=== PATIENT | male | born 1995 | race American Indian/Alaskan Native ===

== ENCOUNTER 2022-07-11 16:36 | Emergency (ER) | payer SELFPAY ==
[2022-07-11] MEDS ORDERED: CYCLOBENZAPRINE 10 MG TAB PO ONE (21:23)
[2022-07-11] MEDS ORDERED: IBUPROFEN 800 MG TAB PO ONE (21:23)
[2022-07-11] MEDS ORDERED: HYDROcodone/ACETAMINOPHEN 5-325 MG TAB PO ONE (21:24)
--- NOTE | 2022-07-11 21:46 | Emergency Department Report ---
ED Upper Extremity Inj HPI - General Chief Complaint: Fall Stated Complaint: SHOULDER PAIN/BACK PAIN Time Seen by Provider: 07/11/22 20:49 Source: patient, family Mode of arrival: Ambulatory Limitations: No Limitations - History of Present Illness Initial Comments: 27-year-old male presenting with pain after fall injury. Patient reports at work he had a slip and fall, landing on his back, complaining of pain in his left shoulder, and his right back area. Describes the pain as sharp, worse with movement, he denies LOC, he denies neck injury, no chest pain, no abdominal pain, no weakness numbness tingling or paresthesias of the extremities. Denies using any blood thinners, he denies any prior history of back injuries. -: Gradual, days(s) - Related Data Previous Rx's Medication Instructions Recorded Last Taken Type Cyclobenzaprine [Flexeril 10 MG 10 mg PO TID PRN #20 tablet 07/11/22 Unknown Rx TAB] Ibuprofen [Motrin 800 MG tab] 800 mg PO TID PRN #30 tablet 07/11/22 Unknown Rx Allergies Allergy/AdvReac Type Severity Reaction Status Date / Time No Known Allergies Allergy Verified 07/11/22 22:13 ED Review of Systems ROS: Stated complaint: SHOULDER PAIN/BACK PAIN Other details as noted in HPI Constitutional: see HPI ENT: as per HPI Respiratory: denies: cough Cardiovascular: denies: chest pain Endocrine: see HPI Gastrointestinal: denies: abdominal pain, nausea, vomiting Genitourinary: denies: urgency, frequency Musculoskeletal: back pain, arthralgia, myalgia Skin: change in color Neurological: denies: headache, weakness, numbness Psychiatric: denies: anxiety ED Past Medical Hx - Past Medical History Previous Medical History?: No - Surgical History Past Surgical History?: Yes Additional Surgical History: right index finger - Medications Home Medications: Home Medications Medication Instructions Recorded Confirmed Last Taken Type Cyclobenzaprine [Flexeril 10 MG 10 mg PO TID PRN #20 tablet 07/11/22 Unknown Rx TAB] Ibuprofen [Motrin 800 MG tab] 800 mg PO TID PRN #30 tablet 07/11/22 Unknown Rx ED Physical Exam - General Limitations: No Limitations General appearance: alert, in no apparent distress - Head Head exam: Present: atraumatic - Eye Eye exam: Present: normal appearance, PERRL Pupils: Present: normal accommodation - ENT ENT exam: Present: normal exam, normal orophraynx - Neck Neck exam: Present: normal inspection. Absent: tenderness - Respiratory Respiratory exam: Present: normal lung sounds bilaterally. Absent: respiratory distress, wheezes, chest wall tenderness - Cardiovascular Cardiovascular Exam: Present: regular rate, normal rhythm - GI/Abdominal GI/Abdominal exam: Present: soft. Absent: distended, tenderness - Rectal Rectal exam: Present: deferred - Extremities Exam Extremities exam: Present: normal inspection, tenderness - Back Exam Back exam: Present: normal inspection, full ROM, tenderness - Expanded Back Exam Expanded 1 - Tender on palpation, pain with active ROM, abrasion, no bony tenderness, 2 - Tender on palpation, pain with active ROM, no midline cervical thoracic or lumbar tenderness - Neurological Exam Neurological exam: Present: alert, oriented X3, CN II-XII intact, normal gait. Absent: motor sensory deficit - Psychiatric Psychiatric exam: Present: normal affect, normal mood - Skin Skin exam: Present: warm, dry, abrasion ED Course Vital Signs 07/11/22 18:03 Temperature 98.5 F Pulse Rate 86 Respiratory 20 Rate Blood Pressure 115/75 [Right] O2 Sat by Pulse 100 Oximetry ED Medical Decision Making - Medical Decision Making 27-year-old male presenting with pain after fall injury. Patient reports at work he had a slip and fall, landing on his back, complaining of pain in his left shoulder, and his right back area. Describes the pain as sharp, worse with movement, he denies LOC, he denies neck injury, no chest pain, no abdominal pain, no weakness numbness tingling or paresthesias of the extremities. Denies using any blood thinners, he denies any prior history of back injuries. 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 Discharged home with [facility] pain management activity modification and follow-up. Patient remained stable nontoxic-appearing, afebrile, ambulating steadily without assistance. Gone over ED findings with patient as well as plan for follow-up. Also discussed return precautions with patient, all questions and concerns addressed. Patient is stable to be discharged follow-up outpatient. Audio voice dictation device used, hence the chart might contain some dictation errors, mispronunciations, wrong spelling and wrong verbiage. Critical care attestation.: If time is entered above; I have spent that time in minutes in the direct care of this critically ill patient, excluding procedure time. ED Disposition Clinical Impression: Fall, Contusion, Musculoskeletal pain Disposition: HOME / SELF CARE / HOMELESS Is pt being admited?: No Does the pt Need Aspirin: No Condition: Stable Instructions: Musculoskeletal Pain Prescriptions: Cyclobenzaprine [Flexeril 10 MG TAB] 10 mg PO TID PRN #20 tablet PRN Reason: Muscle Spasm Ibuprofen [Motrin 800 MG tab] 800 mg PO TID PRN #30 tablet PRN Reason: Pain , Severe (7-10) Forms: Work/School Release Form(ED)
[2022-07-11 23:50] VITALS: BP 126/78
== END 2022-07-12 01:28 | disposition home or self-care (01) ==
LOC: ED 16:36
DX: S30.0XXA Contusion of lower back and pelvis, initial encounter (principal); W19.XXXA Unspecified fall, initial encounter; Y93.89 Activity, other specified; Y92.89 Other specified places as the place of occurrence of the external cause; Y99.8 Other external cause status; M79.18 Myalgia, other site
CPT/HCPCS: 99282